=== PATIENT | female | born 1980 | race Caucasian/White ===

== ENCOUNTER 2017-02-27 01:41 | Emergency (ER) | payer OTHER ==
[~2017-02-27] VITALS: Ht 165.1 cm; Wt 90.0 kg
[~2017-02-27 01:41] MED LIST: FENTANYL1 EAC5 TD; FLEXERIL10 MG PO; PERCOCET 5/31 TABLET PO
[2017-02-27 01:45] VITALS: BP 131/106
[2017-02-27] MEDS ORDERED: AUGMENTIN875 MG PO (04:29)
== END 2017-02-27 04:45 | disposition home or self-care (01) ==
LOC: EME 01:41
PROC: 2W3TX1Z Immobilization of Left Foot using Splint (ICD-10-PCS; principal; 2017-02-27)
DX: S92.405A Nondisplaced unspecified fracture of left great toe, initial encounter for closed fracture (principal); W19.XXXA Unspecified fall, initial encounter; Z87.891 Personal history of nicotine dependence
CPT/HCPCS: 73630; 99281; 99284

== ENCOUNTER 2017-09-24 12:04 | Emergency (ER) | payer OTHER ==
[~2017-09-24] VITALS: Ht 165.1 cm; Wt 105.4 kg
[~2017-09-24 12:04] MED LIST changes: +AUGMENTIN875 MG PO
[2017-09-24] MEDS ORDERED: XANAX0.25 MG PO (14:08)
[2017-09-24 14:29] VITALS: BP 129/85
== END 2017-09-24 14:30 | disposition home or self-care (01) ==
LOC: EME 12:04
DX: F41.9 Anxiety disorder, unspecified (principal); F41.0 Panic disorder [episodic paroxysmal anxiety]; Z88.1 Allergy status to other antibiotic agents; Z88.6 Allergy status to analgesic agent; Z88.5 Allergy status to narcotic agent; Z87.891 Personal history of nicotine dependence
CPT/HCPCS: 90839; 99281; 99283

== ENCOUNTER 2017-12-03 12:55 | Emergency (ER) | payer OTHER ==
[~2017-12-03] VITALS: Ht 165.1 cm; Wt 101.2 kg
[~2017-12-03 12:55] MED LIST changes: +XANAX0.25 MG PO
[2017-12-03 12:57] VITALS: BP 149/98
[2017-12-03] MEDS ORDERED: KEFLEX500 MG PO (14:21)
== END 2017-12-03 15:06 | disposition home or self-care (01) ==
LOC: EME 12:55
DX: S90.852A Superficial foreign body, left foot, initial encounter (principal); Z18.81 Retained glass fragments; Z88.5 Allergy status to narcotic agent; Z88.1 Allergy status to other antibiotic agents; Z88.6 Allergy status to analgesic agent
CPT/HCPCS: 73630; 99281; 99284; S0020